=== PATIENT | male | born 1960 | race African-American/Black ===

== ENCOUNTER 2018-12-02 00:51 | Emergency (ER) | payer MEDICAID, OTHER ==
[2018-12-02] MEDS: OXYCODONE/ACETAMINOPHEN (5/325) TAB PO (03:34)
[2018-12-02] MEDS: LIDOCAINE 4% CR TOP (03:35)
[2018-12-02] MEDS ORDERED: BACITRACIN 0.9 GM OINT (06:24)
[2018-12-02] MEDS: LIDOCAINE 1% (MDV) 20 ML INJ SC (06:29)
[2018-12-02] MEDS: IBUPROFEN 800 MG TAB PO (06:51)
== END 2018-12-02 06:52 | disposition home or self-care (01) ==
LOC: FTE 00:51
DX: M79.674 Pain in right toe(s) (principal); F17.210 Nicotine dependence, cigarettes, uncomplicated
CPT/HCPCS: 99283; Z7610